=== PATIENT | male | born 1990 | race Caucasian/White ===

== ENCOUNTER 2023-10-21 10:00 | Day surgery (SDC) | payer OTHER ==
[~2023-10-21] VITALS: Ht 180.3 cm; Wt 95.3 kg
[~2023-10-21 10:00] MED LIST: NS 1,000 ML IV ONE; PANT20TA6 PO
[2023-10-21 12:27] VITALS: TEMP 97.7
[2023-10-21 12:42] VITALS: BP 123/67; O2SAT 96
== END 2023-10-21 12:48 | disposition home or self-care (01) ==
LOC: M OPP 10:00
PROVIDERS: ATTEND Internal Medicine Gastroenterology
DX: R19.4 Change in bowel habit (principal); K63.89 Other specified diseases of intestine; K44.9 Diaphragmatic hernia without obstruction or gangrene; K22.89 Other specified disease of esophagus; R12 Heartburn; R11.2 Nausea with vomiting, unspecified; Z79.899 Other long term (current) drug therapy